=== PATIENT | female | born 1965 | race Caucasian/White ===

== ENCOUNTER → 2019-03-26 | Outpatient (CLI) | payer BC, OTHER ==
[~2019-03-26] MED LIST: AMLO-150 PO; ATOR20TA37 PO; CHOL2000 PO; CYCL-259 PO; EMPA25TA PO; FERR-46 PO; IBUP-1223 PO; INSU300I SQ; LINA5TAB PO; LISI40TA PO; MEGE40TA PO; METF750T2 PO; OXYC5CAP2 PO; VALA500T PO; ZOLP10TA PO
[2019-03-26 12:37] LABS: BASOPHILS # (AUTO) 0.05 x10^3/uL (0-0.1); BASOPHILS % (AUTO) 1 % (0-1); EOSINOPHILS # (AUTO) 0.18 x10^3/uL (0-0.4); EOSINOPHILS % (AUTO) 2 % (1-7); LYMPHOCYTES % (AUTO) 29 % (22-44); MD NO; MEAN CORPUSCULAR HEMOGLOBIN 28.5 pg (27.0-34.8); MEAN CORPUSCULAR HGB CONC 32.1 g/dL (32.4-35.8); MEAN CORPUSCULAR VOLUME 88.6 fL (80-100); MEAN PLATELET VOLUME 7.6 fL (7.4-10.4); MONOCYTES # (AUTO) 0.72 x10^3/uL (0.2-0.8); MONOCYTES % (AUTO) 8 % (2-9); NEUTROPHILS # (AUTO) 5.51 x10^3/uL (1.8-6.8); NEUTROPHILS % (AUTO) 61 % (42-75); PLATELET COUNT 412 x10^3/uL (130-400); RED BLOOD COUNT 4.32 x10^6/uL (3.82-5.3); RED CELL DISTRIBUTION WIDTH 14.1 % (9.6-15.2)
[2019-03-26 12:43] LABS: ALANINE AMINOTRANSFERASE 24 U/L (12-78); ALBUMIN 3.6 g/dL (3.4-5.0); ANION GAP 5 mmol/L (5-15); CALCIUM 8.7 mg/dL (8.5-10.1); CHLORIDE 112 mmol/L (98-107); CREATININE 0.92 mg/dL (0.55-1.02); INTERNATIONAL NORMALIZED RATIO 0.98 (0.93-1.1); PROTHROMBIN TIME 10.3 Seconds (9.6-11.5)
[2019-03-26 12:46] LABS: ALKALINE PHOSPHATASE 83 U/L (45-117); BILIRUBIN,TOTAL 0.3 mg/dL (0.2-1.0); TOTAL PROTEIN 7.4 g/dL (6.4-8.2)
== END | disposition home or self-care (01) ==
LOC: STAR 11:21
PROVIDERS: ATTEND Specialist
DX: Z01.818 Encounter for other preprocedural examination (principal); R19.07 Generalized intra-abdominal and pelvic swelling, mass and lump
CPT/HCPCS: 36415; 71046; 80053; 85025; 85610; 85730; 86304; 93005

== ENCOUNTER 2019-04-05 11:35 | Observation (INO) | payer BC ==
[~2019-04-05] VITALS: Ht 162.6 cm; Wt 97.6 kg
[~2019-04-05 11:35] MED LIST changes: +BUPIVACAINE/PF 0.25% ONE; +INDOCYANINE GREEN 25 MG VIAL ONE
[2019-04-05] MEDS ORDERED: ACETAMINOPHEN 500 MG TABLET PO STA (12:04)
[2019-04-05] MEDS ORDERED: SCOPOLAMINE PATCH, 1.5MG PATCH.TD72 TD STA (12:04)
[2019-04-05] MEDS ORDERED: GABAPENTIN 300 MG CAPSULE PO STA (12:04)
[2019-04-05] MEDS: LACTATED RINGERS 1,000 ML IV SCH (12:56)
[2019-04-05 13:14] LABS: HCG UR SG 1.028 (1.003-1.030)
[2019-04-05] MEDS ORDERED: MIDAZOLAM 1 MG/ML, 2ML ONE (13:46)
[2019-04-05] MEDS ORDERED: FENTANYL PF 250 MCG/5ML ONE (13:46)
[2019-04-05] MEDS ORDERED: PROPOFOL 10 MG/ML, 20ML ONE (13:49)
[2019-04-05] MEDS ORDERED: ONDANSETRON 2MG/ML, 2ML ONE (13:49)
[2019-04-05] MEDS ORDERED: NEOSTIGMINE 1 MG/ML, 10ML ONE (13:49)
[2019-04-05] MEDS ORDERED: GLYCOPYRROLATE 0.2MG/1ML, 5ML ONE (13:49)
[2019-04-05] MEDS ORDERED: DEXAMETHASONE 4 MG/ML, 1ML ONE (13:49)
[2019-04-05] MEDS ORDERED: CEFAZOLIN 1,000 MG ONE (13:49)
[2019-04-05] MEDS ORDERED: ROCURONIUM 10MG/ML,5ML ONE ×2 (13:49→16:58)
[2019-04-05] MEDS ORDERED: DEXTROSE 50%, 50ML SYRINGE IVPush ONE (14:41)
[2019-04-05] MEDS ORDERED: DEXTROSE 50%, 50ML SYRINGE IVPush STA (15:44)
[2019-04-05] MEDS ORDERED: OXYcodone 5 MG/5 ML ORAL.SOL UDC PO PRN (16:00)
[2019-04-05] MEDS ORDERED: MEPERIDINE/PF 25MG/0.5ML IVPush PRN (16:00)
[2019-04-05] MEDS ORDERED: HALOPERIDOL 5 MG/ML IV PRN (16:00)
[2019-04-05] MEDS ORDERED: FENTANYL PF 100 MCG/2ML IV PRN (16:00)
[2019-04-05] MEDS ORDERED: ONDANSETRON 2MG/ML, 2ML IV PRN (16:00)
[2019-04-05] MEDS ORDERED: PROMETHAZINE 25 MG/ML, 1ML IV PRN (16:00)
[2019-04-05] MEDS ORDERED: PROMETHAZINE 25 MG/ML, 1ML IM PRN ×2 (16:00)
[2019-04-05] MEDS ORDERED: PROMETHAZINE 25 MG SUPP PR PRN (16:00)
[2019-04-05] MEDS ORDERED: MORPHINE SULFATE 4 MG/ML, 1ML IVPush PRN (16:00)
[2019-04-05] MEDS ORDERED: PROMETHAZINE 12.5 MG SUPP PR PRN (16:00)
[2019-04-05] MEDS ORDERED: ONDANSETRON ODT 8 MG PO PRN (16:00)
[2019-04-05] MEDS ORDERED: hydrALAzine 20 MG/ML, 1ML IV PRN (16:00)
[2019-04-05] MEDS ORDERED: LABETALOL 5MG/ML, 20ML IV PRN (16:00)
[2019-04-05] MEDS ORDERED: FENTANYL PF 100 MCG/2ML ONE ×5 (16:57→18:41)
[2019-04-05] MEDS ORDERED: KETOROLAC 30 MG/1 ML ONE (18:02)
[2019-04-05] MEDS ORDERED: OXYcodone 5 MG/5 ML ORAL.SOL UDC ONE (18:42)
[2019-04-05] MEDS ORDERED: HYDROmorphone 2 MG/ML, 1ML ONE (19:01)
[2019-04-05] MEDS: HYDROmorphone 2 MG/ML, 1ML IVPush PRN ×3 (19:04→19:25)
[2019-04-05] MEDS ORDERED: OXYC-306 PO (20:11)
[2019-04-05] MEDS ORDERED: ONDA4TAB7 PO (20:13)
[2019-04-05] MEDS ORDERED: OXYcodone/APAP 7.5/325MG TABLET ONE (20:38)
[2019-04-05] MEDS: OXYcodone/APAP 7.5/325MG TABLET PO PRN (20:39)
[2019-04-05] MEDS ORDERED: ZOLPIDEM 10MG TABLET PO PRN (23:00)
[2019-04-05] MEDS ORDERED: ONDANSETRON 2MG/ML, 2ML IVPush PRN (23:00)
[2019-04-05] MEDS: metFORMIN 500 MG TABLET PO SCH (23:58)
[2019-04-06 00:08] VITALS: BP 149/77
[2019-04-06] MEDS: LACTATED RINGERS 1,000 ML IV SCH (00:48)
[2019-04-06] MEDS: OXYcodone/APAP 7.5/325MG TABLET PO PRN ×2 (02:10→07:55)
[2019-04-06 02:32] VITALS: BP 134/71
[2019-04-06 03:37] VITALS: BP 122/79
[2019-04-06] MEDS: metFORMIN 500 MG TABLET PO SCH (07:53)
[2019-04-06 08:18] VITALS: BP 127/73
[2019-04-06 11:26] VITALS: BP 144/75
== END 2019-04-06 12:00 | disposition home or self-care (01) ==
LOC: OR 11:35 → 4NOR 19:50 → OR 23:12 → DCLOUNGE 04-06 11:50
PROVIDERS: ADMIT Specialist; ATTEND Specialist
DX: C54.1 Malignant neoplasm of endometrium (principal); D25.9 Leiomyoma of uterus, unspecified; N92.1 Excessive and frequent menstruation with irregular cycle; N95.0 Postmenopausal bleeding; N85.2 Hypertrophy of uterus; N85.7 Hematometra; E66.01 Morbid (severe) obesity due to excess calories; I10 Essential (primary) hypertension; E78.5 Hyperlipidemia, unspecified; Z87.891 Personal history of nicotine dependence; E11.9 Type 2 diabetes mellitus without complications
CPT/HCPCS: 36415; 38792; 58548; 74018; 81025; 82962; 86850; 86900; 86923; 88112; 88305; 88307; 88331; 88333; 88334; G0378; J0690; J1100; J1170; J1885; J2250; J2405; J2704; J2710; J3010; J3490; J7120; S2900